=== PATIENT | female | born 1980 | race Caucasian/White ===

== ENCOUNTER 2018-07-08 09:04 | Emergency (ER) | payer SELFPAY, MEDICAID ==
[2018-07-08 09:26] LABS: URINE BLOOD (Dip) POC 3+ (NEGATIVE); URINE GLUCOSE (Dip) POC Negative (NEGATIVE); URINE KETONES (Dip) POC Negative (NEGATIVE); URINE LEUKOCYTE EST (Dip) POC 2+ (NEGATIVE); URINE NITRITE (Dip) POC Negative (NEGATIVE); URINE TOTAL PROTEIN POC 2+ (NEGATIVE)
[2018-07-08] MEDS: PHENAZOPYRIDINE 100 MG TAB PO (10:08)
[2018-07-08] MEDS: ACETAMINOPHEN 500 MG TAB PO (10:08)
[2018-07-08] MEDS: CEPHALEXIN 500 MG CAP PO (10:08)
== END 2018-07-08 10:15 | disposition home or self-care (01) ==
LOC: FTE 09:04
DX: N30.00 Acute cystitis without hematuria (principal)
CPT/HCPCS: 81003; 81025; 99283